=== PATIENT | male | born 1960 | race Caucasian/White ===

== ENCOUNTER → 2021-07-19 13:23 | Outpatient (CLI) | payer SELFPAY ==
--- NOTE | 2021-07-19 14:35 | NEURO ---
NCS and/or EMG Patient Report Ordering Doctor: Chong Munroe DATE OF SERVICE: 07/19/21 Christopher presents for electrodiagnostic testing of the right upper limb. Reports numbness and tingling in the right hand. Electrodiagnostic findings: Right median motor nerve demonstrates prolonged distal latency with normal amplitude and borderline reduced conduction velocity. Normal right ulnar motor response. Normal median ulnar F waves. Prolonged median sensory latency at the wrist. On needle EMG, all muscles tested in the right upper limb showed no evidence of denervation with normal motor unit action potentials. Electrodiagnostic assessment: This is an abnormal study in the right upper limb. 1. Electrodiagnostic findings demonstrate right-sided median mononeuropathy. This consistent with a mild right carpal tunnel syndrome.
== END ==
PROVIDERS: PCP Family Medicine; Referring Provider Orthopaedic Surgery; Visit Provider Orthopaedic Surgery
DX: R20.2 Paresthesia of skin (principal)
CPT/HCPCS: 95886; 95910

== ENCOUNTER → 2022-01-26 | Outpatient (CLI) | payer SELFPAY ==
--- NOTE | 2022-01-26 06:11 | MRI_ITS ---
EXAM: MR HEAD WITHOUT AND WITH INTRAVENOUS CONTRAST CLINICAL INDICATION: Meningioma. Syncope. Metal shavings removed 25+ years ago. TECHNIQUE: Multiplanar and multisequence MR images of the brain were obtained without and with intravenous contrast. This report was created using [employer] report generation technology. CONTRAST: IV 19ml Dotarem COMPARISON: None. FINDINGS: BRAIN AND EXTRA-AXIAL SPACES: Dural based solid enhancing extra-axial mass overlying the left central lobe convexity measures 4.5 x 4 x 3.4 cm. It is isointense to morris matter in all pulse sequences. There is minimal vasogenic edema behind and medial to this meningioma. Small T2 FLAIR hyperintensity foci scattered in the white matter of the cerebral hemispheres, left more than right are nonspecific. Normal ventricles and cisterns. No intra- or extra-axial hemorrhage. No evidence of acute infarct. Posterior fossa structures are unremarkable. No hydrocephalus. SELLA: Unremarkable. Normal sella turcica, pituitary gland, infundibular stalk, optic chiasm and hypothalamus. AUDITORY SYSTEM: Unremarkable. The internal auditory canals are patent. BONES/JOINTS: Unremarkable. No discrete lytic or blastic abnormalities. SINUSES: Unremarkable as visualized. Clear. MASTOID AIR CELLS: Unremarkable as visualized. Clear. ORBITS: Unremarkable as visualized. Both globes, extraocular muscles, optic nerves and retrobulbar fat appear unremarkable. VASCULATURE: Unremarkable as visualized. Normal flow voids in the major intracranial circulation. MRI/Brain W/WO Contrast IMPRESSION: Large solid enhancing meningioma overlying the left central lobe convexity measuring 4.5 x 4 x 3.4 cm with minimal vasogenic edema behind and medial to this mass. Electronically Signed: Aldair Limon MD at 14:30 EDT ,
--- NOTE | 2022-01-26 07:30 | RAD_ITS ---
STUDY: X-RAY - ORBITS REASON FOR EXAM: Male, 61 years old. HX METAL TO EYE; PRE MRI -- PT HAVING TEST IN PULM/NEURO AT 630 AM FIRST TECHNIQUE: 2 view(s) of the orbits were obtained. COMPARISON: None. FINDINGS: Normal bilateral orbits without a metallic orbital foreign body. Normal visualized facial bones. Normal paranasal sinuses. The soft tissue structures are unremarkable. RAD/Orbits for Foreign Body IMPRESSION: No demonstrated metallic orbital foreign body. The patient is cleared for an MRI examination. Electronically Signed: Ramiro Arriaga MD at 7:55 EDT ,
--- NOTE | 2022-01-26 07:41 | TELEMED_ITS ---
[facility] has confirmed receipt of a request for visit. This document confirms receipt of the order initiating the consult. To find the results of the consultation, please view the patient's reports for the scanned Tele[facility] Consult.
[2022-01-26 09:01] LABS: CREATININE FINGERSTICK < 0.9 mg/dL (0.70-1.30); EGFR FINGERSTICK > 60.0000 mL/min (>60)
== END | disposition home or self-care (01) ==
LOC: PSN 06:11
PROVIDERS: PCP Family Medicine; Referring Provider Psychiatry & Neurology Neurology; Visit Provider Psychiatry & Neurology Neurology
DX: D32.0 Benign neoplasm of cerebral meninges (principal); R55 Syncope and collapse
CPT/HCPCS: 70030; 70553; 95819; A9575

== ENCOUNTER → 2022-09-07 | Outpatient (CLI) | payer SELFPAY ==
--- NOTE | 2022-09-07 07:46 | MRI_ITS ---
EXAM: MR HEAD WITHOUT AND WITH INTRAVENOUS CONTRAST CLINICAL INDICATION: Follow-up left parietal meningioma -- Patient has had orbital x-ray evaluation (01/26/22) which was negative TECHNIQUE: Multiplanar and multisequence MR images of the brain were obtained without and with intravenous contrast. This report was created using [employer] report [employer] technology. CONTRAST: 19 mL of IV Clariscan. COMPARISON: MRI brain with and without contrast 01/26/2022. FINDINGS: BRAIN AND EXTRA-AXIAL SPACES: Solid enhancing extra-axial mass overlying the left central lobe convexity measures 4.4 x 3.5 cm in the coronal projection, previously 4.3 x 3.1 cm. In the axial projection, this solid enhancing extra-axial mass measures 3.3 x 4.7 cm, previously 3.2 x 4.5 cm. No associated vasogenic edema of the underlying brain parenchyma. Minimal [id number] midline shift across the midline interhemispheric fissure is unchanged. Small subcortical white matter T2 FLAIR hyperintensity in the left frontal lobe and one in the left central lobe are unchanged. No intra- or extra-axial hemorrhage. No evidence of acute infarct. There is preservation of the morris/white matter interface. Posterior fossa structures are unremarkable. No hydrocephalus. Normal ventricles and cisterns. SELLA: Unremarkable. Normal sella turcica, pituitary gland, infundibular stalk, optic chiasm and hypothalamus. AUDITORY SYSTEM: Unremarkable. The internal auditory canals are patent. BONES/JOINTS: Unremarkable. No discrete lytic or blastic abnormalities. SINUSES: Unremarkable as visualized. Clear. MASTOID AIR CELLS: Unremarkable as visualized. Clear. ORBITS: Unremarkable as visualized. Both globes, extraocular muscles, optic nerves and retrobulbar fat appear unremarkable. VASCULATURE: Unremarkable as visualized. Normal flow voids in the major intracranial circulation. MRI/Brain W/WO Contrast IMPRESSION: 1. Solid enhancing dural based extra-axial mass overlying the left central lobe convexity is most likely meningioma. There is no associated vasogenic edema of the underlying brain parenchyma. In the coronal projection, this measures 4.4 x 3.5 cm, previously 4.3 x 3.1 cm. In the axial projection, this measures 3.3 x 4.7 cm, previously 3.2 x 4.5 cm. 2. Minimal left to right midline shift across the midline interhemispheric fissure is unchanged. 3. Small nonspecific subcortical white matter hyperintensity in the left frontal lobe and one in the left central lobe are unchanged. They may be secondary to microvascular disease. Electronically Signed: Aldair Limon MD at 9:56 EST ,
[2022-09-07 08:26] LABS: CREATININE FINGERSTICK < 0.9 mg/dL (0.70-1.30); EGFR FINGERSTICK > 60.0000 mL/min (>60)
== END | disposition home or self-care (01) ==
PROVIDERS: PCP Family Medicine; Referring Provider Psychiatry & Neurology Neurology; Visit Provider Psychiatry & Neurology Neurology
DX: D32.0 Benign neoplasm of cerebral meninges (principal)
CPT/HCPCS: 70553; A9575